=== PATIENT | male | born 1960 | race Caucasian/White ===

== ENCOUNTER 2019-01-18 06:33 | Day surgery (SDC) | payer BC ==
[2019-01-17 11:52] VITALS: BMI 30.5
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
[2019-01-18] MEDS ORDERED: Bupivacaine HCl 0.5%/Epinephrine 1:200,000/PF 30 ml Vial ONE (09:29)
[2019-01-18] MEDS ORDERED: Fentanyl 100 MCG/2 ML VIAL ONE (09:47)
[2019-01-18] MEDS ORDERED: Ketorolac Tromethamine 30 MG/ML VIAL ONE (11:31)
[2019-01-18] MEDS ORDERED: Lidocaine 1% PF 5 ML VIAL ONE (11:31)
[2019-01-18] MEDS ORDERED: Rocuronium Bromide 10 MG/ML (10ML VIAL) ONE (11:31)
[2019-01-18] MEDS ORDERED: ePHEDrine/0.9% NaCl/PF SYRINGE 50 mg/10 ml ONE (11:31)
[2019-01-18] MEDS ORDERED: Ondansetron PF 4 MG/2 ML Vial ONE (11:31)
[2019-01-18] MEDS ORDERED: Glycopyrrolate 0.2 MG/ML 5 ML SYRINGE ONE (11:31)
[2019-01-18] MEDS ORDERED: PROPOFOL 200 MG/20 ML VIAL ONE (11:31)
[2019-01-18] MEDS ORDERED: Dexamethasone 20 MG/5 ML VIAL ONE (11:31)
[2019-01-18] MEDS ORDERED: Tamsulosin HCl 0.4 MG CAP ONE (11:48)
--- NOTE | 2019-01-20 16:22 | EKG ---
Test Reason : PREOP Blood Pressure : / mmHG Vent. Rate : 052 BPM Atrial Rate : 052 BPM P-R Int : 138 ms QRS Dur : 098 ms QT Int : 434 ms P-R-T Axes : 044 013 026 degrees QTc Int : 403 ms Sinus bradycardia Otherwise normal ECG No previous ECGs available Confirmed by DR. Braeden HERNANDEZ ([id number]) on 01/20/2019 4:21:44 PM Referred By: Daniel ANAYA Confirmed By:DR. Braeden HERNANDEZ
--- NOTE | 2019-01-21 13:56 | OP ---
DATE OF PROCEDURE: 01/18/2019 COLLIERY CLERK: Wyatt Larson PA-C PROCEDURE PERFORMED: Right L3 foraminal decompression. ANESTHESIA: General. DESCRIPTION OF PROCEDURE: The patient was brought into the operating room and placed under general anesthesia. He was flipped from the supine to prone position on the operating room table. A linear incision was planned at the L3 segment. After prepping and draping and after an appropriate operative pause, the incision was created. The soft tissues were swept right of midline. A self-retaining retractor was placed. After confirming the appropriate level, high-speed cutting drill bit as well as 2, 3 and 4 mm Kerrisons were used to perform a laminectomy along the inferior aspect of L3 on the right. The laminectomy was extended laterally to encompass the medial aspect of the facet joint in order to further decompress the L3 foramen and therefore, the exiting L3 nerve root. After the decompression was complete, the wound was irrigated. Hemostasis was maintained throughout. The wound was then closed in anatomic layers and a pressure dressing was applied. There were no known procedural complications. Job ID: [id number]
== END 2019-01-18 13:50 | disposition home or self-care (01) ==
LOC: SDC 06:33
PROVIDERS: ATTEND Neurological Surgery
PROC: 00NY0ZZ Release Lumbar Spinal Cord, Open Approach (ICD-10-PCS; principal; 2019-01-18)
DX: M48.061 Spinal stenosis, lumbar region without neurogenic claudication (principal); M51.16 Intervertebral disc disorders with radiculopathy, lumbar region; I10 Essential (primary) hypertension; E03.9 Hypothyroidism, unspecified; E78.5 Hyperlipidemia, unspecified; F41.9 Anxiety disorder, unspecified; M19.90 Unspecified osteoarthritis, unspecified site; Z79.82 Long term (current) use of aspirin; Z79.899 Other long term (current) drug therapy; Z88.8 Allergy status to other drugs, medicaments and biological substances
CPT/HCPCS: 76000; 93005; 93010; J0670; J0690; J1100; J1885; J2001; J2405; J2704; J3010